=== PATIENT | female | born 1975 | race African-American/Black ===

== ENCOUNTER 2016-06-25 17:22 | Inpatient (IN) | payer OTHER ==
[~2016-06-25] VITALS: Ht 165.1 cm; Wt 108.0 kg
[~2016-06-25 17:22] MED LIST: ADVIL,NUPRIN,M200 MG PO; ALEVE220 MG PO; CITALOPRAM HBR20 MG PO; DAILY VALUE1 EACH PO; EZ NITE SLEEP25 MG PO; NOHOMEMEDS; RISPERDAL2 MG PO; RISPERDAL4 MG PO; ROBITUSSIN100 MG/5 M PO
[2016-06-25 18:28] LABS: CHLORIDE 108 mEq/L (99-109); HEMATOCRIT 24.1 % (36.0-46.0); MCH 17.7 PG (29.0-34.0); MCHC 27.4 G/DL (30.0-36.0); MCV 64.8 FL (83-99); PLATELET COUNT 278 K/uL (156-360); POTASSIUM 4.1 mEq/L (3.7-5.4); RBC DIS.WIDTH-CV 21.7 % (11.8-14.6); RBC DIS.WIDTH-SD 48.9 % (39-53); RED BLOOD COUNT 3.72 M/uL (3.80-5.20); SODIUM 139 mEq/L (136-147)
[2016-06-25 18:30] LABS: GLUCOSE 121 mg/dL (70-99)
[2016-06-25 18:32] LABS: ANION GAP 9 MEQ/L (2-14); D-DIMER ELISA 0.89 mg/L FEU (< 0.57)
[2016-06-25 18:34] LABS: GFR ESTIMATE (CALCULATED) > 59 mL/min/
[2016-06-25 18:35] LABS: UREA NITROGEN (BUN) 16 mg/dL (9-23)
[2016-06-25 18:41] LABS: TROP-I INTERPRETATION NEGATIVE; TROPONIN-I < 0.01 ng/mL (0.0-0.30)
[2016-06-25 20:39] LABS: PROTHROMBIN TIME 10.5 (9.2-11.2); PTT 24.2 (25-32)
[2016-06-25] MEDS ORDERED: RISPERDAL2 MG PO (21:27)
[2016-06-25] MEDS ORDERED: SPRINTEC1 EACH PO (21:27)
[2016-06-25] MEDS ORDERED: FLONASE16 G1 BOTH NARES (21:28)
[2016-06-25 21:50] VITALS: BP 121/82
[2016-06-25 22:12] VITALS: BP 122/81
[2016-06-26] VITALS (9 sets, daily range): BP systolic 116–142; BP diastolic 67–83
[2016-06-26 07:59] LABS: HEMATOCRIT 25.2 % (36.0-46.0); MCH 18.7 PG (29.0-34.0); MCHC 27.8 G/DL (30.0-36.0); MCV 67.2 FL (83-99); PLATELET COUNT 253 K/uL (156-360); RBC DIS.WIDTH-CV 22.8 % (11.8-14.6); RBC DIS.WIDTH-SD 53.4 % (39-53); RED BLOOD COUNT 3.75 M/uL (3.80-5.20); WHITE BLOOD COUNT 8.5 K/uL (4.1-10.2)
[2016-06-27] VITALS (9 sets, daily range): BP systolic 116–139; BP diastolic 66–98
[2016-06-27 06:31] LABS: EOSINOPHIL (%) 1.5 % (0-5); EOSINOPHIL COUNT 0.1 K/uL (0-0.3); HEMATOCRIT 28.3 % (36.0-46.0); IMMATURE GRANULOCYTE (%) 0.3 % (0.0-0.7); INSTRUMENT ABS NEUTROPHIL CT 4.1 K/uL; LYMPHOCYTE COUNT 2.6 K/uL (1.0-2.8); MCH 19.8 PG (29.0-34.0); MCHC 28.6 G/DL (30.0-36.0); MONOCYTE (%) 12.2 % (3-12); NEUTROPHIL (%) 52.3 % (45-76); NEUTROPHIL COUNT 4.1 K/uL (1.8-6.4); PLATELET COUNT 274 K/uL (156-360); RBC DIS.WIDTH-CV 24.3 % (11.8-14.6); RBC DIS.WIDTH-SD 58.7 % (39-53); WHITE BLOOD COUNT 7.8 K/uL (4.1-10.2)
[2016-06-27 07:01] LABS: ALKALINE PHOSPHATASE 48 IU/L (3-129); ANION GAP 9 MEQ/L (2-14); CHLORIDE 107 MEQ/L (99-109); GFR ESTIMATE (CALCULATED) > 59 mL/min/; GLUCOSE 124 mg/dL (70-99); POTASSIUM 4.1 MEQ/L (3.7-5.4); SAMPLE HEMOLYSIS CHECK 0; SAMPLE ICTERIC CHECK 0; SAMPLE LIPEMIA CHECK 0; SODIUM 138 MEQ/L (136-147); TOTAL BILIRUBIN 0.2 MG/DL (0.0-1.0); UREA NITROGEN (BUN) 11 mg/dL (9-23)
[2016-06-28 00:59] VITALS: BP 128/78
[2016-06-28 04:08] VITALS: BP 122/72
[2016-06-28 08:35] VITALS: BP 119/70
[2016-06-28 11:01] LABS: HEMATOCRIT 32.4 % (36.0-46.0); MCH 20.7 PG (29.0-34.0); MCHC 29.3 G/DL (30.0-36.0); MCV 70.4 FL (83-99); RBC DIS.WIDTH-SD 60.8 % (39-53); WHITE BLOOD COUNT 10.1 K/uL (4.1-10.2)
[2016-06-28 11:31] LABS: PLATELET COUNT UNABLE TO REPORT K/uL (156-360)
[2016-06-28 11:42] VITALS: BP 131/77
[2016-06-28 16:31] VITALS: BP 124/81
[2016-06-28 19:15] VITALS: BP 126/83
[2016-06-29 00:20] VITALS: BP 111/67
[2016-06-29 03:15] VITALS: BP 121/64
[2016-06-29 08:00] VITALS: BP 130/79
[2016-06-29] MEDS ORDERED: LO-DOSE ASPIRIN81 M2 PO (10:36)
[2016-06-29 12:10] VITALS: BP 134/85
== END 2016-06-29 13:55 | disposition home health service (06) | DRG 176 ==
LOC: EME 17:22 → EDOF 22:08 → 5WEST 22:08 → EDOF 22:08 → 5WEST 23:06
PROVIDERS: Emergency Medicine; Hospitalist; Internal Medicine; Physician Assistant Medical
PROC: 30233N1 Transfusion of Nonautologous Red Blood Cells into Peripheral Vein, Percutaneous Approach (ICD-10-PCS; principal; 2016-06-25)
DX: I26.99 Other pulmonary embolism without acute cor pulmonale (principal); D50.0 Iron deficiency anemia secondary to blood loss (chronic); E66.9 Obesity, unspecified; Z68.41 Body mass index [BMI] 40.0-44.9, adult; R91.1 Solitary pulmonary nodule; N92.1 Excessive and frequent menstruation with irregular cycle; E04.1 Nontoxic single thyroid nodule; M54.9 Dorsalgia, unspecified; F22 Delusional disorders
CPT/HCPCS: 71020; 71275; 80048; 80053; 84484; 85025; 85027; 85379; 85610; 85730; 86850; 86900; 86901; 86920; 93005; 93970; 99281; 99284; G0378; J7030; P9016

== ENCOUNTER 2017-05-07 14:37 | Inpatient (IN) | payer OTHER ==
[~2017-05-07] VITALS: Ht 165.1 cm; Wt 103.5 kg
[~2017-05-07 14:37] MED LIST changes: +FLONASE16 G1 BOTH NARES; +LO-DOSE ASPIRIN81 M2 PO; +SPRINTEC1 EACH PO
[2017-05-07 17:10] LABS: HEMATOCRIT 44.7 % (36.0-46.0); HEMOGLOBIN 13.7 G/DL (11.9-15.5); MCH 23.3 PG (29.0-34.0); MCHC 30.6 G/DL (30.0-36.0); PLATELET COUNT 252 K/uL (156-360); RBC DIS.WIDTH-CV 17.6 % (11.8-14.6); RBC DIS.WIDTH-SD 46.7 % (39-53); RED BLOOD COUNT 5.88 M/uL (3.80-5.20); WHITE BLOOD COUNT 10.9 K/uL (4.1-10.2)
[2017-05-07 17:18] LABS: CHLORIDE 106 mEq/L (99-109); POTASSIUM 4.6 mEq/L (3.7-5.4); SODIUM 133 mEq/L (136-147)
[2017-05-07 17:19] LABS: GLUCOSE 326 mg/dL (70-99)
[2017-05-07 17:23] LABS: CREATININE 1.4 mg/dL (0.6-1.3); GFR ESTIMATE (CALCULATED) 53 mL/min/
[2017-05-07 17:24] LABS: UREA NITROGEN (BUN) 8 mg/dL (9-23)
[2017-05-07 17:32] LABS: QUANTITATIVE HCG < 4.0 MIU/ML
[2017-05-07 17:37] LABS: BASE EXCESS -18.9 mEq/L (-3 to +3); BICARBONATE 9.6 mEq/L (22-26); COMMENTS - BLOOD GASES DRAWN BY LAB; METHEMOGLOBIN 1.1 % (0-1.5); PCO2 31 mm Hg (35-45); PO2 44 mm Hg (80-100); SITE VENOUS BLOOG GAS
[2017-05-07 20:38] LABS: APPEARANCE CLEAR ((CLEAR)); BILIRUBIN NEGATIVE; BLOOD SMALL; COLOR YELLOW ((YELLOW)); GLUCOSE (STRIP) >=500; KETONES 80; LEUKOCYTES NEGATIVE; NITRITE NEGATIVE; PROTEIN (STRIP) 100; UROBILINOGEN 0.2 MG/DL (0.2-1.0)
[2017-05-07 20:52] LABS: BACTERIA NONE SEEN /HPF; CELLULAR CASTS 0-5 /LPF; EPITHELIAL CELLS RARE /HPF; HYALINE CASTS 0-5 /LPF; MUCUS TRACE /LPF; RED BLOOD CELLS 0-5 /HPF (0-5); UCUL ADDED? NO; WHITE BLOOD CELLS 0-5 /HPF (0-5)
[2017-05-07] MEDS ORDERED: VITAMIN A8000 UNIT PO (21:01)
[2017-05-07] MEDS ORDERED: GLUCOPHAGE500 MG PO (21:01)
[2017-05-07] MEDS ORDERED: TYLENOL EXTRA500 MG PO (21:01)
[2017-05-08 00:50] VITALS: BP 142/3
[2017-05-08 01:32] VITALS: BP 142/73
[2017-05-08 06:34] LABS: HEMATOCRIT 40.6 % (36.0-46.0); HEMOGLOBIN 12.2 G/DL (11.9-15.5); MCH 23.2 PG (29.0-34.0); MCV 77.3 FL (83-99); PLATELET COUNT 236 K/uL (156-360); RBC DIS.WIDTH-CV 17.5 % (11.8-14.6); RBC DIS.WIDTH-SD 48.7 % (39-53); RED BLOOD COUNT 5.25 M/uL (3.80-5.20); WHITE BLOOD COUNT 8.8 K/uL (4.1-10.2)
[2017-05-08 07:05] VITALS: BP 122/71
[2017-05-08 07:09] LABS: ALBUMIN 3.6 G/DL (3.2-4.8); ALKALINE PHOSPHATASE 109 IU/L (3-129); ALT (GPT) 14 IU/L (3-49); AST (GOT) 10 IU/L (2-34); CHLORIDE 107 MEQ/L (99-109); GLUCOSE 332 mg/dL (70-99); POTASSIUM 4.3 MEQ/L (3.7-5.4); SODIUM 136 MEQ/L (136-147); TOTAL BILIRUBIN 0.5 MG/DL (0.0-1.0); TOTAL PROTEIN 7.2 G/DL (6.4-8.3); UREA NITROGEN (BUN) 7 mg/dL (9-23)
[2017-05-08 07:10] LABS: CREATININE 0.8 MG/DL (0.6-1.3); GFR ESTIMATE (CALCULATED) > 59 mL/min/
[2017-05-08 07:11] LABS: CARBON DIOXIDE (BICARBONATE) < 10.0 MEQ/L (20-31)
[2017-05-08 08:50] LABS: FERRITIN 106 NG/ML (10-291)
[2017-05-08 10:43] LABS: HEMOGLOBIN A1c (GLYCOHEMOGLOB) 14.7 % (Below 5.7)
[2017-05-08 15:04] VITALS: BP 115/70
[2017-05-08 18:14] LABS: BASOPHIL (%) 0.2 % (0-1); EOSINOPHIL (%) 0.2 % (0-5); HEMATOCRIT 38.3 % (36.0-46.0); HEMOGLOBIN 11.6 G/DL (11.9-15.5); IMMATURE GRANULOCYTE (%) 0.6 % (0.0-0.7); LYMPHOCYTE (%) 11.5 % (15-42); LYMPHOCYTE COUNT 1.3 K/uL (1.0-2.8); MCHC 30.3 G/DL (30.0-36.0); MONOCYTE COUNT 1.6 K/uL (0-0.8); NEUTROPHIL (%) 73.5 % (45-76); NEUTROPHIL COUNT 8.1 K/uL (1.8-6.4); PLATELET COUNT 251 K/uL (156-360); RBC DIS.WIDTH-CV 17.4 % (11.8-14.6); RBC DIS.WIDTH-SD 48.1 % (39-53); RED BLOOD COUNT 5.04 M/uL (3.80-5.20); WHITE BLOOD COUNT 11.1 K/uL (4.1-10.2)
[2017-05-08 18:51] LABS: CHLORIDE 106 MEQ/L (99-109); CREATININE 0.7 MG/DL (0.6-1.3); GFR ESTIMATE (CALCULATED) > 59 mL/min/; GLUCOSE 300 mg/dL (70-99); POTASSIUM 4.3 MEQ/L (3.7-5.4); SODIUM 132 MEQ/L (136-147); UREA NITROGEN (BUN) 8 mg/dL (9-23)
[2017-05-08 23:42] VITALS: BP 138/83
[2017-05-09 07:00] LABS: BASOPHIL (%) 0.1 % (0-1); EOSINOPHIL (%) 0.3 % (0-5); HEMATOCRIT 37.9 % (36.0-46.0); HEMOGLOBIN 11.8 G/DL (11.9-15.5); IMMATURE GRANULOCYTE (%) 0.8 % (0.0-0.7); LYMPHOCYTE (%) 13.5 % (15-42); LYMPHOCYTE COUNT 1.4 K/uL (1.0-2.8); MCH 23.1 PG (29.0-34.0); MCHC 31.1 G/DL (30.0-36.0); MCV 74.3 FL (83-99); MONOCYTE (%) 13.8 % (3-12); MONOCYTE COUNT 1.4 K/uL (0-0.8); NEUTROPHIL (%) 71.5 % (45-76); NEUTROPHIL COUNT 7.4 K/uL (1.8-6.4); PLATELET COUNT 257 K/uL (156-360); RBC DIS.WIDTH-CV 17.4 % (11.8-14.6); RBC DIS.WIDTH-SD 46.5 % (39-53); WHITE BLOOD COUNT 10.3 K/uL (4.1-10.2)
[2017-05-09 07:26] LABS: CHLORIDE 105 MEQ/L (99-109); CREATININE 0.7 MG/DL (0.6-1.3); GFR ESTIMATE (CALCULATED) > 59 mL/min/; GLUCOSE 315 mg/dL (70-99); SODIUM 133 MEQ/L (136-147); UREA NITROGEN (BUN) 7 mg/dL (9-23)
[2017-05-09 08:00] VITALS: BP 132/70
[2017-05-09 17:18] VITALS: BP 117/76
[2017-05-09 19:03] LABS: ALBUMIN 3.4 G/DL (3.2-4.8); ALKALINE PHOSPHATASE 87 IU/L (3-129); ALT (GPT) 9 IU/L (3-49); AST (GOT) < 7 IU/L (2-34); CHLORIDE 103 MEQ/L (99-109); CREATININE 0.7 MG/DL (0.6-1.3); GFR ESTIMATE (CALCULATED) > 59 mL/min/; GLUCOSE 343 mg/dL (70-99); POTASSIUM 3.3 MEQ/L (3.7-5.4); SODIUM 132 MEQ/L (136-147); TOTAL BILIRUBIN 0.4 MG/DL (0.0-1.0); TOTAL PROTEIN 7.1 G/DL (6.4-8.3); UREA NITROGEN (BUN) 10 mg/dL (9-23)
[2017-05-10 00:15] VITALS: BP 95/60
[2017-05-10 00:21] VITALS: BP 124/60
[2017-05-10 07:02] LABS: BASOPHIL (%) 0.2 % (0-1); EOSINOPHIL (%) 0.5 % (0-5); HEMATOCRIT 35.1 % (36.0-46.0); IMMATURE GRANULOCYTE (%) 1.1 % (0.0-0.7); LYMPHOCYTE (%) 20.8 % (15-42); LYMPHOCYTE COUNT 1.8 K/uL (1.0-2.8); MCHC 31.3 G/DL (30.0-36.0); MCV 73.3 FL (83-99); MONOCYTE (%) 17.9 % (3-12); MONOCYTE COUNT 1.6 K/uL (0-0.8); NEUTROPHIL (%) 59.5 % (45-76); NEUTROPHIL COUNT 5.3 K/uL (1.8-6.4); PLATELET COUNT 269 K/uL (156-360); RBC DIS.WIDTH-CV 17.2 % (11.8-14.6); RBC DIS.WIDTH-SD 45.1 % (39-53); RED BLOOD COUNT 4.79 M/uL (3.80-5.20); WHITE BLOOD COUNT 8.8 K/uL (4.1-10.2)
[2017-05-10 07:22] VITALS: BP 130/76
[2017-05-10 09:04] LABS: ALBUMIN 3.2 G/DL (3.2-4.8); ALKALINE PHOSPHATASE 89 IU/L (3-129); ALT (GPT) 11 IU/L (3-49); AST (GOT) 10 IU/L (2-34); CHLORIDE 102 MEQ/L (99-109); CREATININE 0.7 MG/DL (0.6-1.3); GFR ESTIMATE (CALCULATED) > 59 mL/min/; GLUCOSE 284 mg/dL (70-99); IRON 46 MCG/DL (35-150); POTASSIUM 3.5 MEQ/L (3.7-5.4); SODIUM 136 MEQ/L (136-147); TOTAL BILIRUBIN 0.4 MG/DL (0.0-1.0); TOTAL PROTEIN 6.5 G/DL (6.4-8.3); TRANSFERRIN (TIBC) 216.3 mg/dL (215-380); TRANSFERRIN SATUR. 21 % (20-55); UREA NITROGEN (BUN) 9 mg/dL (9-23)
[2017-05-10 09:08] LABS: FERRITIN 123 NG/ML (10-291)
[2017-05-10] MEDS ORDERED: OSELTAMIVIR PHO75 MG PO (12:35)
[2017-05-10] MEDS ORDERED: CITALOPRAM HBR20 MG PO (12:35)
[2017-05-10] MEDS ORDERED: GLUCOPHAGE500 MG PO (13:03)
== END 2017-05-10 14:15 | disposition home or self-care (01) | DRG 638 ==
LOC: EME 14:37 → EDOF 21:28 → CANRESERV 21:34 → ENRESERV 21:34 → 5SOUTH 22:30 → EDOF 22:30 → ENRESERV 22:31 → 5SOUTH 05-08 00:28
PROVIDERS: Emergency Medicine; Hospitalist; Internal Medicine
DX: E11.00 Type 2 diabetes mellitus with hyperosmolarity without nonketotic hyperglycemic-hyperosmolar coma (NKHHC) (principal); E87.2 Acidosis; F33.9 Major depressive disorder, recurrent, unspecified; E87.0 Hyperosmolality and hypernatremia; E87.1 Hypo-osmolality and hyponatremia; J10.1 Influenza due to other identified influenza virus with other respiratory manifestations; E11.65 Type 2 diabetes mellitus with hyperglycemia; E86.0 Dehydration; K59.00 Constipation, unspecified; E66.9 Obesity, unspecified; Z60.2 Problems related to living alone; D64.9 Anemia, unspecified; F41.9 Anxiety disorder, unspecified; Z68.38 Body mass index [BMI] 38.0-38.9, adult; Z86.711 Personal history of pulmonary embolism; Z59.0 Homelessness; Z79.84 Long term (current) use of oral hypoglycemic drugs
CPT/HCPCS: 36600; 71046; 80048; 80048 91; 80053; 81003; 82010; 82728; 82803; 82948; 83036; 83540; 84466; 84702; 85025; 85027; 87502; 99281; 99285; J1644; J1815; J1885; J2405; J7030; J7070

== ENCOUNTER 2017-05-17 14:33 | Emergency (ER) | payer OTHER ==
[~2017-05-17] VITALS: Ht 165.1 cm; Wt 99.4 kg
[~2017-05-17 14:33] MED LIST changes: +GLUCOPHAGE500 MG PO; +OSELTAMIVIR PHO75 MG PO; +TYLENOL EXTRA500 MG PO; +VITAMIN A8000 UNIT PO
[2017-05-17 15:23] LABS: HEMATOCRIT 41.1 % (36.0-46.0); MCHC 31.9 G/DL (30.0-36.0); MCV 75.3 FL (83-99); RBC DIS.WIDTH-CV 18.1 % (11.8-14.6); RBC DIS.WIDTH-SD 44.7 % (39-53); RED BLOOD COUNT 5.46 M/uL (3.80-5.20); WHITE BLOOD COUNT 6.4 K/uL (4.1-10.2)
[2017-05-17 15:40] LABS: CHLORIDE 101 mEq/L (99-109); SODIUM 135 mEq/L (136-147)
[2017-05-17 15:41] LABS: GLUCOSE 304 mg/dL (70-99)
[2017-05-17 15:45] LABS: CREATININE 0.8 mg/dL (0.6-1.3); GFR ESTIMATE (CALCULATED) > 59 mL/min/
[2017-05-17 15:46] LABS: UREA NITROGEN (BUN) 5 mg/dL (9-23)
[2017-05-17 16:12] LABS: HEMOGLOBIN 13.1 G/DL (11.9-15.5); PLAT.SUFFICIENCY ADEQUATE; PLATELET CLUMPS PRESENT - PLATELET COUNT APPEARS ADQ.; PLATELET COUNT UNABLE TO REPORT K/uL (156-360)
[2017-05-17 19:11] VITALS: BP 122/89
== END 2017-05-17 19:12 | disposition home or self-care (01) ==
LOC: EME 14:33
PROVIDERS: Emergency Medicine
DX: J10.1 Influenza due to other identified influenza virus with other respiratory manifestations (principal); E11.9 Type 2 diabetes mellitus without complications
CPT/HCPCS: 71046; 80048; 83605; 85027; 99281; 99284; J2405; J7030

== ENCOUNTER 2017-07-01 14:12 | Inpatient (IN) | payer OTHER ==
[~2017-07-01] VITALS: Ht 165.1 cm; Wt 98.8 kg
[2017-07-01 14:46] LABS: BASOPHIL (%) 0.2 % (0-1); EOSINOPHIL (%) 0.3 % (0-5); HEMATOCRIT 36.7 % (36.0-46.0); HEMOGLOBIN 11.9 G/DL (11.9-15.5); IMMATURE GRANULOCYTE (%) 0.3 % (0.0-0.7); LYMPHOCYTE (%) 33.7 % (15-42); MCH 25.5 PG (29.0-34.0); MCHC 32.4 G/DL (30.0-36.0); MCV 78.8 FL (83-99); MONOCYTE (%) 9.5 % (3-12); MONOCYTE COUNT 0.6 K/uL (0-0.8); NEUTROPHIL COUNT 3.4 K/uL (1.8-6.4); PLATELET COUNT 173 K/uL (156-360); RBC DIS.WIDTH-CV 18.2 % (11.8-14.6); RED BLOOD COUNT 4.66 M/uL (3.80-5.20)
[2017-07-01 14:48] LABS: CARBON DIOXIDE (BICARBONATE) 14.5 MEQ/L (20-31)
[2017-07-01 14:54] LABS: ALBUMIN 3.8 g/dL (3.2-4.8); CHLORIDE 105 mEq/L (99-109); POTASSIUM 4.2 mEq/L (3.7-5.4); SODIUM 132 mEq/L (136-147)
[2017-07-01 14:55] LABS: MAGNESIUM 1.9 mg/dL (1.3-2.7)
[2017-07-01 14:56] LABS: TOTAL PROTEIN 7.2 g/dL (6.4-8.3)
[2017-07-01 14:58] LABS: TOTAL BILIRUBIN 0.3 mg/dL (0.0-1.0)
[2017-07-01 15:00] LABS: ALKALINE PHOSPHATASE 134 IU/L (3-129); CREATININE 1.1 mg/dL (0.6-1.3); GFR ESTIMATE (CALCULATED) > 59 mL/min/
[2017-07-01 15:01] LABS: UREA NITROGEN (BUN) 6 mg/dL (9-23)
[2017-07-01 15:02] LABS: AST (GOT) 10 IU/L (2-34)
[2017-07-01 15:03] LABS: ALT (GPT) 14 IU/L (3-49)
[2017-07-01 15:09] LABS: GLUCOSE 473 mg/dL (70-99); QUANTITATIVE HCG < 4.0 MIU/ML
[2017-07-01 15:37] LABS: APPEARANCE CLEAR ((CLEAR)); BILIRUBIN NEGATIVE; BLOOD LARGE; COLOR STRAW ((YELLOW)); GLUCOSE (STRIP) >=500; KETONES 80; LEUKOCYTES NEGATIVE; NITRITE NEGATIVE; PROTEIN (STRIP) 30; SPECIFIC GRAVITY 1.033 (1.000-1.030); UROBILINOGEN 0.2 MG/DL (0.2-1.0)
[2017-07-01 15:49] LABS: BACTERIA NONE SEEN /HPF; CALCIUM OXALATE CRYSTALS 1+ /HPF; EPITHELIAL CELLS NONE SEEN /HPF; MUCUS TRACE /LPF; RED BLOOD CELLS TNTC /HPF (0-5); UCUL ADDED? YES
[2017-07-01] MEDS ORDERED: RISPERDAL2 MG PO (16:40)
[2017-07-01] MEDS ORDERED: MEDROXYPRO150 MG/1 M IM (16:41)
[2017-07-01] MEDS ORDERED: TRULICITY1.5 MG/0.5 SC (16:41)
[2017-07-01] MEDS ORDERED: TRESIBA FL200 UNIT/1 SC ×2 (16:44→16:45)
[2017-07-01] MEDS ORDERED: FARXIGA5 MG PO (16:46)
[2017-07-01 18:32] LABS: CHLORIDE 111 mEq/L (99-109); SODIUM 138 mEq/L (136-147)
[2017-07-01 18:34] LABS: GLUCOSE 252 mg/dL (70-99)
[2017-07-01 18:37] LABS: CREATININE 0.8 mg/dL (0.6-1.3); GFR ESTIMATE (CALCULATED) > 59 mL/min/
[2017-07-01 18:38] LABS: UREA NITROGEN (BUN) 5 mg/dL (9-23)
[2017-07-01 20:25] LABS: CHLORIDE 110 mEq/L (99-109); POTASSIUM 3.4 mEq/L (3.7-5.4); SODIUM 136 mEq/L (136-147)
[2017-07-01 20:27] LABS: GLUCOSE 248 mg/dL (70-99)
[2017-07-01 20:30] LABS: CREATININE 0.8 mg/dL (0.6-1.3); GFR ESTIMATE (CALCULATED) > 59 mL/min/; PHOSPHORUS 1.7 mg/dL (2.5-4.9)
[2017-07-01 20:31] LABS: UREA NITROGEN (BUN) 5 mg/dL (9-23)
[2017-07-01 22:55] VITALS: BP 145/84
[2017-07-02] VITALS (21 sets, daily range): BP systolic 118–153; BP diastolic 74–104
[2017-07-02 01:06] LABS: CHLORIDE 110 mEq/L (99-109); POTASSIUM 3.8 mEq/L (3.7-5.4); SODIUM 138 mEq/L (136-147)
[2017-07-02 01:08] LABS: GLUCOSE 202 mg/dL (70-99)
[2017-07-02 01:12] LABS: CREATININE 0.8 mg/dL (0.6-1.3); GFR ESTIMATE (CALCULATED) > 59 mL/min/; PHOSPHORUS 2.1 mg/dL (2.5-4.9)
[2017-07-02 01:13] LABS: UREA NITROGEN (BUN) 5 mg/dL (9-23)
[2017-07-02 04:27] LABS: HEMATOCRIT 32.4 % (36.0-46.0); HEMOGLOBIN 10.8 G/DL (11.9-15.5); MCH 25.7 PG (29.0-34.0); MCHC 33.3 G/DL (30.0-36.0); PLATELET COUNT 167 K/uL (156-360); RBC DIS.WIDTH-CV 17.7 % (11.8-14.6); RBC DIS.WIDTH-SD 49.3 % (39-53); RED BLOOD COUNT 4.21 M/uL (3.80-5.20); WHITE BLOOD COUNT 5.3 K/uL (4.1-10.2)
[2017-07-02 04:36] LABS: CHLORIDE 110 mEq/L (99-109); SODIUM 137 mEq/L (136-147)
[2017-07-02 04:38] LABS: GLUCOSE 169 mg/dL (70-99); POTASSIUM 2.9 mEq/L (3.7-5.4)
[2017-07-02 04:41] LABS: PHOSPHORUS 2.4 mg/dL (2.5-4.9)
[2017-07-02 04:42] LABS: CREATININE 0.8 mg/dL (0.6-1.3); GFR ESTIMATE (CALCULATED) > 59 mL/min/
[2017-07-02 04:43] LABS: UREA NITROGEN (BUN) 5 mg/dL (9-23)
[2017-07-02 08:39] LABS: CHLORIDE 110 MEQ/L (99-109); CREATININE 0.6 MG/DL (0.6-1.3); GFR ESTIMATE (CALCULATED) > 59 mL/min/; GLUCOSE 143 mg/dL (70-99); PHOSPHORUS 2.6 mg/dL (2.5-4.9); POTASSIUM 3.3 MEQ/L (3.7-5.4); SODIUM 139 MEQ/L (136-147); UREA NITROGEN (BUN) 5 mg/dL (9-23)
[2017-07-02 10:12] LABS: HEMOGLOBIN A1c (GLYCOHEMOGLOB) 15.6 % (Below 5.7)
[2017-07-02 13:04] LABS: CHLORIDE 109 MEQ/L (99-109); CREATININE 0.6 MG/DL (0.6-1.3); GFR ESTIMATE (CALCULATED) > 59 mL/min/; PHOSPHORUS 2.3 mg/dL (2.5-4.9); POTASSIUM 3.2 MEQ/L (3.7-5.4); SODIUM 137 MEQ/L (136-147); UREA NITROGEN (BUN) 5 mg/dL (9-23)
[2017-07-02 13:12] LABS: GLUCOSE 224 mg/dL (70-99)
[2017-07-02 17:25] LABS: CHLORIDE 108 MEQ/L (99-109); CREATININE 0.7 MG/DL (0.6-1.3); GFR ESTIMATE (CALCULATED) > 59 mL/min/; GLUCOSE 189 mg/dL (70-99); PHOSPHORUS 1.7 mg/dL (2.5-4.9); POTASSIUM 3.5 MEQ/L (3.7-5.4); SODIUM 136 MEQ/L (136-147); UREA NITROGEN (BUN) 6 mg/dL (9-23)
[2017-07-02 20:53] LABS: CHLORIDE 105 MEQ/L (99-109); CREATININE 0.7 MG/DL (0.6-1.3); GFR ESTIMATE (CALCULATED) > 59 mL/min/; POTASSIUM 4.1 MEQ/L (3.7-5.4); SODIUM 134 MEQ/L (136-147); UREA NITROGEN (BUN) 6 mg/dL (9-23)
[2017-07-02 21:08] LABS: GLUCOSE 326 mg/dL (70-99)
[2017-07-03 04:28] VITALS: BP 124/76
[2017-07-03 08:40] VITALS: BP 149/78
[2017-07-03 10:47] VITALS: BP 138/93
[2017-07-03 14:58] LABS: IRON 94 MCG/DL (35-150)
[2017-07-03 15:16] LABS: FERRITIN 64 NG/ML (10-291)
[2017-07-03 15:57] LABS: CHLORIDE 106 MEQ/L (99-109); SODIUM 138 MEQ/L (136-147)
[2017-07-03 16:18] LABS: GLUCOSE 400 mg/dL (70-99)
[2017-07-03 16:19] LABS: CREATININE 0.7 MG/DL (0.6-1.3); GFR ESTIMATE (CALCULATED) > 59 mL/min/; UREA NITROGEN (BUN) 8 mg/dL (9-23)
[2017-07-03 20:01] VITALS: BP 113/75
[2017-07-03 23:18] VITALS: BP 115/76
[2017-07-04 03:59] VITALS: BP 119/73
[2017-07-04 05:06] LABS: BASOPHIL (%) 0.2 % (0-1); EOSINOPHIL (%) 1.8 % (0-5); EOSINOPHIL COUNT 0.1 K/uL (0-0.3); HEMATOCRIT 34.2 % (36.0-46.0); HEMOGLOBIN 11.2 G/DL (11.9-15.5); IMMATURE GRANULOCYTE (%) 0.4 % (0.0-0.7); LYMPHOCYTE (%) 55.1 % (15-42); LYMPHOCYTE COUNT 2.8 K/uL (1.0-2.8); MCH 25.2 PG (29.0-34.0); MCHC 32.7 G/DL (30.0-36.0); MONOCYTE (%) 10.9 % (3-12); MONOCYTE COUNT 0.6 K/uL (0-0.8); NEUTROPHIL (%) 31.6 % (45-76); NEUTROPHIL COUNT 1.6 K/uL (1.8-6.4); PLATELET COUNT 170 K/uL (156-360); RBC DIS.WIDTH-CV 17.8 % (11.8-14.6); RBC DIS.WIDTH-SD 49.6 % (39-53); RED BLOOD COUNT 4.44 M/uL (3.80-5.20); WHITE BLOOD COUNT 5.1 K/uL (4.1-10.2)
[2017-07-04 05:51] LABS: CHLORIDE 109 mEq/L (99-109); POTASSIUM 3.6 mEq/L (3.7-5.4); SODIUM 141 mEq/L (136-147)
[2017-07-04 05:57] LABS: CREATININE 0.7 mg/dL (0.6-1.3); GFR ESTIMATE (CALCULATED) > 59 mL/min/
[2017-07-04 05:58] LABS: UREA NITROGEN (BUN) 7 mg/dL (9-23)
[2017-07-04 06:13] LABS: GLUCOSE 190 mg/dL (70-99); PHOSPHORUS 3.3 mg/dL (2.5-4.9)
[2017-07-04 06:59] VITALS: BP 125/77
[2017-07-04 10:40] VITALS: BP 108/70
[2017-07-04 16:26] VITALS: BP 112/79
[2017-07-04 20:18] VITALS: BP 113/58
[2017-07-04 23:34] VITALS: BP 113/66
[2017-07-05 03:44] VITALS: BP 115/61
[2017-07-05 06:15] LABS: BASOPHIL (%) 0.2 % (0-1); EOSINOPHIL (%) 1.2 % (0-5); EOSINOPHIL COUNT 0.1 K/uL (0-0.3); HEMATOCRIT 33.7 % (36.0-46.0); HEMOGLOBIN 10.9 G/DL (11.9-15.5); IMMATURE GRANULOCYTE (%) 0.3 % (0.0-0.7); LYMPHOCYTE COUNT 3.3 K/uL (1.0-2.8); MCH 25.6 PG (29.0-34.0); MCHC 32.3 G/DL (30.0-36.0); MCV 79.1 FL (83-99); MONOCYTE (%) 13.3 % (3-12); MONOCYTE COUNT 0.8 K/uL (0-0.8); NEUTROPHIL COUNT 1.8 K/uL (1.8-6.4); PLATELET COUNT 187 K/uL (156-360); RBC DIS.WIDTH-CV 18.2 % (11.8-14.6); RBC DIS.WIDTH-SD 51.7 % (39-53); RED BLOOD COUNT 4.26 M/uL (3.80-5.20)
[2017-07-05 06:41] LABS: CHLORIDE 107 MEQ/L (99-109); CREATININE 0.6 MG/DL (0.6-1.3); GFR ESTIMATE (CALCULATED) > 59 mL/min/; GLUCOSE 164 mg/dL (70-99); POTASSIUM 3.7 MEQ/L (3.7-5.4); SODIUM 138 MEQ/L (136-147); UREA NITROGEN (BUN) 6 mg/dL (9-23)
[2017-07-05 07:58] VITALS: BP 128/78
[2017-07-05] MEDS ORDERED: NOVOLOG PE100 UNITS/ SC (11:05)
[2017-07-05 11:50] VITALS: BP 95/50
== END 2017-07-05 13:23 | disposition home or self-care (01) | DRG 638 ==
LOC: EME 14:12 → 4WEST 16:15 → EDOF 16:15 → ENRESERV 16:16 → CANRESERV 16:16 → ENRESERV 22:10 → 4WEST 22:44 → ENRESERV 07-02 16:23 → 4WEST 07-02 16:55 → 4EAST 07-02 17:06 → ENRESERV 07-04 07:46 → 2EAST 07-04 10:24
PROVIDERS: Emergency Medicine; Hospitalist; Internal Medicine; Specialist; Surgery
DX: E11.10 Type 2 diabetes mellitus with ketoacidosis without coma (principal); N17.9 Acute kidney failure, unspecified; E11.65 Type 2 diabetes mellitus with hyperglycemia; F31.9 Bipolar disorder, unspecified; F22 Delusional disorders; N92.0 Excessive and frequent menstruation with regular cycle; E66.9 Obesity, unspecified; D50.0 Iron deficiency anemia secondary to blood loss (chronic); Z60.2 Problems related to living alone; Z68.36 Body mass index [BMI] 36.0-36.9, adult; Z79.84 Long term (current) use of oral hypoglycemic drugs; Z91.14 Patient's other noncompliance with medication regimen; Z91.120 Patient's intentional underdosing of medication regimen due to financial hardship
CPT/HCPCS: 80048; 80048 91; 80053; 81003; 82010; 82728; 82803; 82948; 83036; 83540; 83735; 84100; 84702; 85025; 85027; 87086; 87641; 99281; 99285; J1644; J1815; J7030; J7040; J7050

== ENCOUNTER 2017-11-29 07:18 | Emergency (ER) | payer OTHER ==
[~2017-11-29] VITALS: Ht 165.1 cm; Wt 107.2 kg
[~2017-11-29 07:18] MED LIST changes: +FARXIGA5 MG PO; +MEDROXYPRO150 MG/1 M IM; +NOVOLOG PE100 UNITS/ SC; +TRESIBA FL200 UNIT/1 SC; +TRULICITY1.5 MG/0.5 SC
[2017-11-29 07:52] LABS: BASOPHIL (%) 0.5 % (0-1); EOSINOPHIL (%) 1.4 % (0-5); EOSINOPHIL COUNT 0.1 K/uL (0-0.3); HEMATOCRIT 38.7 % (36.0-46.0); HEMOGLOBIN 12.1 G/DL (11.9-15.5); IMMATURE GRANULOCYTE (%) 0.2 % (0.0-0.7); LYMPHOCYTE (%) 32.9 % (15-42); LYMPHOCYTE COUNT 1.4 K/uL (1.0-2.8); MCH 24.2 PG (29.0-34.0); MCHC 31.3 G/DL (30.0-36.0); MCV 77.4 FL (83-99); MONOCYTE (%) 17.8 % (3-12); MONOCYTE COUNT 0.8 K/uL (0-0.8); NEUTROPHIL (%) 47.2 % (45-76); NEUTROPHIL COUNT 2.1 K/uL (1.8-6.4); RBC DIS.WIDTH-CV 16.2 % (11.8-14.6); RBC DIS.WIDTH-SD 45.4 % (39-53); WHITE BLOOD COUNT 4.4 K/uL (4.1-10.2)
[2017-11-29 08:15] LABS: QUANTITATIVE HCG < 4.0 MIU/ML
[2017-11-29 08:18] LABS: CHLORIDE 109 mEq/L (99-109); POTASSIUM 3.9 mEq/L (3.7-5.4); SODIUM 139 mEq/L (136-147)
[2017-11-29 08:19] LABS: GLUCOSE 119 mg/dL (70-99)
[2017-11-29 08:23] LABS: CREATININE 0.8 mg/dL (0.6-1.3); GFR ESTIMATE (CALCULATED) > 59 mL/min/
[2017-11-29 08:24] LABS: UREA NITROGEN (BUN) 9 mg/dL (9-23)
[2017-11-29] MEDS ORDERED: PROVERA,CYCRIN10 MG PO (10:41)
[2017-11-29 11:16] VITALS: BP 121/86
== END 2017-11-29 12:05 | disposition home or self-care (01) ==
LOC: EME 07:18
PROVIDERS: Emergency Medicine
DX: D25.9 Leiomyoma of uterus, unspecified (principal)
CPT/HCPCS: 76856; 80048; 84702; 85025; 99281; 99284